=== PATIENT | male | born 1980 | race Caucasian/White ===

== ENCOUNTER 2017-12-27 10:21 | Emergency (ER) | payer BC, SELFPAY ==
--- OUTSIDE RECORDS SUMMARY | 2017-12-27 10:24 | XMS REPORT ---
:1980 [facility] Address [address] [place] [address] Dr. Tapia [address] [place] [id number] Care Team Providers Name Role Phone ANDREW SHEPARD Unavailable Unavailable DR AJIT CORDOVA Unavailable Unavailable Problems This patient has no known problems. Allergies, Adverse Reactions, Alerts This patient has no known allergies or adverse reactions. Medications This patient has no known medications. Encounters Start End Encounter Admission Attending Care Care Encounter Date/Time Date/Time Type Type Clinicians Facility Department ID 2017-05-19 2017-05-19 Emergency E DEVYN [facility] [id number] 20:24:00 21:45:00 ANDREW 2017-05-15 2017-05-15 Emergency E TASHA [facility] [id number] 18:21:00 20:14:00 AJIT Results Test Description Test Time Test Comments Text Results Atomic Results Result Comments DIRECT CHLAMYDIA EXAM 2017-05-18 11:44:00 Test Item Value Reference Range Comments CHLAMYDIA TRACHOMATIS (test NOT DETECTED NOT DETECTED jgvi=[id number]) NEISSERIA GONORRHOEAE (test DETECTED NOT DETECTED A positive CT or NG Nucleic qdxr=[id number]) Acid Amplification Test(NAAT) result should be interpreted in conjunctionwith other laboratory and clinical data available tothe clinician. If clinically indicated, furthertesting can be performed on the same sample usingan alternate molecular target. To order alternatetarget test use 71767 (C. trachomatis) [id number] (N. gonorrhoeae). Endnote (test oieh=[id number]) This test was performed using the APTIMA COMBO2 Assay([employer]The analytical performance characteristics of thisassay, when used to test SurePath specimens havebeen determined by [employer]TEST PERFORMED AT:[employer] [address] [address]NTXMDMIGUEL VALENCIA M.D. URINE [id number] 10:24:00 Test Item Value Reference Range Comments Culture Observations (test NO GROWTH (<1,000 CFU/ML) code=COB1) U/S [id number] 19:21:05LOCATION: [id number]: 37-year-old male with left-sided testicular pain.COMMENT:Sonographic imaging of this patient's scrotum and contents was obtainedutilizing grayscale, color-flow, and Doppler waveform imaging modalities. Thestudy was technically limited due to the patient 's inability to tolerateadequate pressure from the ultrasound probe.RIGHT SIDE: The testicle measures 41 x 32 x 20 mm and exhibits normal-appearing homogeneousechotexture. Low resistance arterial blood flow is seen on the Doppler study.The epididymis is unremarkable measuring 15 x 8 x 15 mm.There is a trace hydrocele. No varicocele is present.LEFT SIDE:The testicle measures 37 x 30 x 29 mm exhibits normal-appearing homogeneousechotexture. Low resistance arterial blood flow seen on the Doppler study.The epididymis is mildly heterogeneous measuring 11 x 9 x 8 mm. No increasedblood flow seen in the epididymis on color flow study.There is a small hydrocele also a varicocele is observed.The scrotal wall is unremarkable.IMPRESSION:Essentially unremarkable scrotal ultrasound examination. Bilateral sonolucenthydroceles are present as outlined above along with a left-sided varicocele.COMPREHENSIVE METABOLIC [id number] 19:17:00 Test Item Value Reference Range Comments GLUCOSE (test code=06D) 87 mg/dL 75-100 SODIUM (test code=01A) 138 mmol/L 136-145 POTASSIUM (test code=01B) 3.9 mmol/L 3.6-5.1 CHLORIDE (test code=04A) 103 mmol/L 98-107 CO2 (test code=02A) 29 mmol/L 22-32 ANION GAP (test code=ANG) 9.9 mmol/L BUN (test code=05D) 10 mg/dL 7-18 CREATININE (test code=03E) 1.0 mg/dL 0.7-1.3 BUN/CREA (test code=BCR) 10 12-20 CALCIUM (test code=09D) 8.6 mg/dL 8.3-9.5 BILI TOTAL (test code=11A) 0.3 mg/dL 0.2-1.0 PROTEIN (test code=07D) 7.5 g/dL 6.4-8.2 ALBUMIN (test code=08D) 3.4 g/dL 3.5-4.8 GLOBULIN (test code=GLB) 4.1 g/dL 1.5-3.8 ALB/GLOB (test code=AGRR) 0.8 1.0-2.6 ALK PHOS (test code=35A) 123 IU/L 42-121 AST (test code=30A) 9 IU/L <=42 ALT (test code=31A) 18 IU/L <=78 URINALYSIS WITH [id number] 19:07:00 Test Item Value Reference Range Comments COLOR (test code=COLU) DK YELLOW YELLOW CLARITY (test code=CLA) TURBID CLEAR GLUCOSE UR (test code=UA GLUCOSE) NEGATIVE NEGATIVE BILI UR (test code=BILE) NEGATIVE NEGATIVE KETONES UR (test code=LAURYN) NEGATIVE NEGATIVE SP GRAVITY (test code=SPGR) 1.026 1.005-1.030 PH UR (test code=PH) 6.0 4.5-8.0 PROTEIN UR (test code=PU) 1+ NEGATIVE UROBIL UR (test code=UROQ) 0.2 EU/dL 0.2-1.0 NITRITE UR (test code=NITRITE) NEGATIVE NEGATIVE BLOOD UR (test code=UA BLOOD) 2+ NEGATIVE LEUK ES UR (test code=LEUK) 2+ NEGATIVE WBC UR (test code=UWBC) 40 /HPF 0-3 RBC UR (test code=URBC) 20 /HPF 0-2 EPITH UR (test code=UEPC) FEW /LPF NONE BACTERIA UR (test code=UBACT) MODERATE /HPF NONE CAST UR (test code=CAST) /LPF NONE CRYSTAL UR (test code=CRYU) / LPF NONE MUCUS UR (test code=MUC) / HPF NONE AMORPH UR (test code=AJIT) / HPF NONE TRICH UR (test code=UTRICH) /HPF NONE YEAST UR (test code=UY) /HPF NONE SPERM UR (test code=USPERM) /HPF NONE CBC (INCLUDES AUTOMATED DIFFERENTIAL)2017-05-15 19:00:00 Test Item Value Reference Range Comments WBC (test code=WBC) 12.4 10\S\3/uL 4.5-11.0 RBC (test code=RBC) 5.35 10\S\6/uL 4.30-5.70 HGB (test code=HBG) 15.4 g/dL 14.0-18.0 HCT (test code=HCT) 46.5 % 35.0-46.0 MCV (test code=MCV) 86.9 fL 80.0-94.0 MCH (test code=MCH) 28.8 pg 27.0-31.0 MCHC (test code=MCHC) 33.1 g/dL 32.0-36.0 RDW (test code=RDW) 13.1 % 11.5-14.5 PLT (test code=PLT) 252 10\S\3/uL 130-400 MPV (test code=MPV) 8.7 fL 9.4-12.4 NEUTROP # (test code=NE#) 9.5 10\S\3/uL 2.0-8.0 LYMPH # (test code=LY#) 1.5 10\S\3/uL 1.2-4.0 MONOCYTE # (test code=MO#) 0.8 10\S\3/uL 0.0-1.1 EOSINOPH # (test code=EO#) 0.6 10\S\3/uL 0.0-0.7 BASOPHIL # (test code=BA#) 0.1 10\S\3/uL 0.0-0.3 IG # (test code=IG#) 0.06 10\S\3/uL 0.00-0.06 NRBC # (test code=NRBC#) 0.00 10\S\3/uL 0.00-0.01 NEUTROPH % (test code=NE%) 76.5 % 35.0-73.0 LYMPH % (test code=LY%) 11.8 % 20.0-55.0 MONO % (test code=MO%) 6.3 % 2.5-10.0 EOSINOPH % (test code=EO%) 4.4 % 0.0-5.0 BASOPHIL % (test code=BA%) 0.5 % 0.0-2.0 IG % (test code=IG%) 0.5 % 0.0-0.8 NRBC% (test code=NRBC%) 0.0 % 0.0-0.2 MANDIFF (test code=MDIFF) NO NO RBC MORPH (test code=RBCMOR) NORMAL
[2017-12-27] MEDS ORDERED: HYDROCODONE/APAP 10/325 TAB ONE (10:44)
--- NOTE | 2017-12-27 12:04 | RAD REPORT ---
EXAM DESCRIPTION: US - Scrotum Testicles - 12/27/2017 11:34 am CLINICAL HISTORY: scrotal pain COMPARISON: No comparisons FINDINGS: The right testicle 4.7 x 3.4 x 1.9 cm. No intratesticular masses or evidence of testicular torsion. The left testicle 3.9 x 3.3 x 3.0 cm. No intratesticular masses or evidence of testicular torsion. The left epididymis is enlarged with increased blood flow. A moderate left hydrocele. IMPRESSION: Left sided epididymitis is suspected. Moderate left hydrocele.
[2017-12-27] MEDS ORDERED: LIDOCAINE 1% MPF 2 ML AMPULE ONE (12:19)
[2017-12-27] MEDS ORDERED: CEFTRIAXONE 1000 MG/VIAL ONE (12:20)
--- NOTE | 2017-12-27 12:26 | ER ---
Nurse's Notes [facility] Name: Ritchie David Age: 37 yrs Sex: Male : 1980 Arrival Date: 12/27/2017 Time: 10:22 Bed 13 Private MD: Diagnosis: Epididymitis Presentation: 12/27 10:31 Presenting complaint: Patient states: Pt c/o L testicle swelling x 1 week, also reports ph nausea, denies V/D, fever, or urinary symptoms. Transition of care: patient was not received from another setting of care. Onset of symptoms was December 27, 2017. Risk Assessment: Do you want to hurt yourself or someone else? Patient reports no desire to harm self or others. Initial Sepsis Screen: Does the patient meet any 2 criteria? No. Patient's initial sepsis screen is negative. Care prior to arrival: None. 10:31 Method Of Arrival: Ambulatory ph 10:31 Acuity: KAUSHIK 3 ph 10:46 Initial Sepsis Screen: Does the patient have a suspected source of infection? No. mb3 Patient's initial sepsis screen is negative. Historical: - Allergies: 10:33 No Known Allergies; ph - Home Meds: 10:33 None [Active]; ph - PMHx: 10:33 None; ph - PSHx: 10:33 Knee surgery; hand surgery; ph - Immunization history:: Adult Immunizations not up to date. - Social history:: Smoking status: Patient uses tobacco products, smokes one-half pack cigarettes per day. - Ebola Screening: : No symptoms or risks identified at this time. Screenin:46 Abuse screen: Denies threats or abuse. Nutritional screening: No deficits noted. mb3 Tuberculosis screening: No symptoms or risk factors identified. Fall Risk None identified. Assessment: 10:43 General: Appears distressed, uncomfortable, Behavior is calm, cooperative, appropriate mb3 for age. Pain: Complains of pain in groin Pain currently is 10 out of 10 on a pain scale. Neuro: No deficits noted. Level of Consciousness is awake, alert, obeys commands. Cardiovascular: No deficits noted. Denies chest pain, Heart tones present Capillary refill < 3 seconds Patient's skin is warm and dry. Respiratory: No deficits noted. Airway is patent Respiratory effort is even, unlabored, Respiratory pattern is regular, symmetrical, Breath sounds are clear bilaterally. GI: No deficits noted. No signs and/or symptoms were reported involving the gastrointestinal system. : Swelling noted on scrotum Reports pain scrotum, testicle, since 5 days ago. EENT: No deficits noted. No signs and/or symptoms were reported regarding the EENT system. Musculoskeletal: No deficits noted. No signs and/or symptoms reported regarding the musculoskeletal system. Vital Signs: 10:33 BP 129 / 74; Pulse 79; Resp 22; Temp 98.2(TE); Pulse Ox 100% on R/A; Weight 68.04 kg; ph Height 5 ft. 9 in. (175.26 cm); Pain 10/10; 12:35 BP 116 / 75; Pulse 92; Resp 16; Pulse Ox 97% on R/A; mb3 10:33 Body Mass Index 22.15 (68.04 kg, 175.26 cm) ph ED Course: 10:22 Patient arrived in ED. as 10:24 Easton Richards PA is PHCP. [facility] 10:24 Bruce Pulido MD is Attending Physician. jmm 10:25 Raghav Jacobo, VIET is Primary Nurse. mb3 10:33 Triage completed. ph 10:34 Arm band placed on. ph 10:34 Patient has correct armband on for positive identification. Placed in gown. Bed in low ph position. Call light in reach. Side rails up X 1. Pulse ox on. NIBP on. Warm blanket given. 11:35 US Scrotum Testicles In Process Unspecified. EDMS 12:26 Jared Briceno MD is Referral Physician. jmm 12:34 No provider procedures requiring assistance completed. Patient did not have IV access mb3 during this emergency room visit. Administered Medications: 10:42 Drug: [place] 10 mg-325 mg 1 tabs Route: PO; mb3 12:11 Follow up: Response: No adverse reaction mb3 12:21 Drug: Rocephin (cefTRIAXone) 1 grams Route: IM; Site: left gluteus; mb3 12:33 Follow up: Response: No adverse reaction mb3 Outcome: 12:26 Discharge ordered by . jmm 12:34 Discharged to home ambulatory, with friend. mb3 12:34 Condition: stable 12:34 Discharge instructions given to patient, Instructed on discharge instructions, follow up and referral plans. no driving heavy equipment, medication usage, Demonstrated understanding of instructions, follow-up care, medications, Prescriptions given X 2. 12:35 Patient left the ED. mb3 Signatures: Dispatcher [employer] EDMS Easton Richards PA PA jmm Martinez, Amelia as Hall, Patricia, RN RN Raghav Thrasher RN RN mb3
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
[2017-12-27 12:41] VITALS: BP 129/74; TEMP 98.2; O2SAT 100
[2017-12-27 12:45] LABS: Urine Blood TRACE (NEG); Urine Glucose NEGATIVE (NEG); Urine Protein NEGATIVE (NEG); Urine Specific Gravity 1.025 (1.005-1.030)
== END 2017-12-27 12:35 | disposition home or self-care (01) ==
LOC: ER 10:21
DX: N45.1 Epididymitis (principal); F17.210 Nicotine dependence, cigarettes, uncomplicated
CPT/HCPCS: 76870; 81003; 87086; 87088; 96372; 99284; J2001

== ENCOUNTER 2019-01-25 10:43 | Emergency (ER) | payer SELFPAY ==
--- OUTSIDE RECORDS SUMMARY | 2019-01-25 10:47 | XMS REPORT ---
:1980 [facility] Address [address] [place] [address] Dr. Tapia [address] [place] [address] Care Team Providers Name Role Phone ANDREW [...] Department ID 2017-05-19 2017-05-19 Emergency E DEVYN [facility] [id number] 20:24:00 21:45:00 ANDREW 2017-05-15 2017-05-15 Emergency E TASHA [facility] [id number] 18:21:00 20:14:00 AJIT Results Test Description Test Time Test Comments Text Results Atomic Results Result Comments DIRECT CHLAMYDIA EXAM 2017-05-18 11:44:00 Test Item Value Reference Range Comments CHLAMYDIA TRACHOMATIS (test NOT DETECTED NOT DETECTED votz=[id number]) NEISSERIA GONORRHOEAE (test DETECTED NOT DETECTED A positive CT or NG Nucleic immi=[id number]) Acid Amplification Test(NAAT) result should be interpreted in conjunctionwith other laboratory and clinical data available tothe clinician. If clinically indicated, furthertesting can be performed on the same sample usingan alternate molecular target. To order alternatetarget test use 22733 (C. trachomatis) [id number] (N. gonorrhoeae). Endnote (test ylod=[id number]) This test was performed using the APTIMA COMBO2 Assay([employer]The analytical performance characteristics of thisassay, when used to test SurePath specimens havebeen determined by [employer].TEST PERFORMED AT:[employer] [address] [id number] VALENCIA M.D. URINE [id number] 10:24:00 Test Item Value Reference Range Comments Culture Observations (test NO GROWTH (<1,000 CFU/ML) code=COB1) U/S [id number] 19:21:05LOCATION: [id number]: 37-year-old male with left-sided testicular pain.COMMENT:Sonographic imaging [...] above along with a left-sided varicocele.COMPREHENSIVE METABOLIC [id number] 19:17:00 Test Item Value Reference Range Comments [...] (test code=31A) 18 IU/L <=78 URINALYSIS WITH [id number] 19:07:00 Test Item Value Reference Range Comments [...]
[2019-01-25 11:57] LABS: Urine Blood NEGATIVE (NEG); Urine Glucose NEGATIVE (NEG); Urine Protein NEGATIVE (NEG); Urine Specific Gravity 1.015 (1.005-1.030); Urine pH 7.5 (5.0-7.0)
[2019-01-25 12:07] LABS: Absolute Lymphocytes (CBC) 1.1 K/uL (0.7-4.9); Basophils % 0.6 % (0-1.3); Hematocrit 46.8 % (39.6-49.0); Lymphocytes % 15.9 % (15.3-44.8); MPV 8.2 fL (7.6-11.3); RBC Red Blood Cell Count 5.25 M/uL (4.33-5.43)
--- NOTE | 2019-01-25 12:17 | RAD REPORT ---
EXAM DESCRIPTION: CT - Stone Protocol - 01/25/2019 12:01 pm CLINICAL HISTORY: Flank pain. HEMATURIA COMPARISON: No comparisons TECHNIQUE: Axial images were obtained without oral or IV contrast. Lack of contrast limits solid org an and vascular assessment. The uywvy-yi-oqyr spans the entirety of the system partially obscuring uppermost abdomen and lung bases. Coronal reformatted images were obtained and reviewed. All CT scans are performed using dose optimization technique as appropriate and may include automated exposure control or mA/KV adjustment according to patient size. FINDINGS: Linear subsegmental atelectasis is present in both lung bases, greater on the right. Imaged portions of the liver and spleen show no suspicious findings on non-contrast imaging. The panc reas and adrenal glands are normal. No pathologic lymphadenopathy in the abdomen or pelvis. No urinary tract stones or obstructive uropathy. No bowel obstruction, free air, free fluid or abscess. Normal appendix noted. No significant bony abnormality. IMPRESSION: No urinary tract stones or obstructive uropathy.
[2019-01-25 12:29] LABS: ALT/SGPT 54 U/L (12-78); AST/SGOT 24 U/L (15-37); Albumin 3.8 g/dL (3.4-5.0); Alkaline Phosphatase 83 U/L (45-117); BUN Blood Urea Nitrogen 11 mg/dL (7-18); Bicarbonate 25 mmol/L (21-32); Bilirubin Direct < 0.1 mg/dL (0-0.2); Bilirubin Total 0.3 mg/dL (0.2-1.0); CKMB Creatine Kinase MB < 1.0 ng/mL (0.3-3.6); Creatine Phosphokinase 148 U/L (39-308); Glucose Level 82 mg/dL (74-106); Lipase 65 U/L (73-393); Protein, Total 7.3 g/dL (6.4-8.2); Sodium Level 142 mmol/L (136-145)
[2019-01-25 12:38] LABS: Urine Bacteria <20 /HPF (NONE SEEN); Urine Culture Reflex Order NOT NEEDED; Urine RBC <5 /HPF (NONE SEEN)
--- NOTE | 2019-01-25 12:56 | RAD REPORT ---
EXAM DESCRIPTION: US - Scrotum Testicles - 01/25/2019 12:48 pm CLINICAL HISTORY: testicular pain COMPARISON: Scrotum Testicles dated 12/27/2017 FINDINGS: The right testicle 5.0 x 3.1 x 2.2 cm. No intratesticular masses or evidence of testicular torsion. The left testicle 4.7 x 3.2 x 2.2 cm. No intratesticular masses or evidence of testicular torsion. Both epididymides are normal in size and appearance. No pathologic fluid collections. IMPRESSION: Unremarkable study.
--- NOTE | 2019-01-25 13:19 | ER ---
Nurse's Notes [facility] Name: Ritchie David Age: 39 yrs Sex: Male : 1980 Arrival Date: 01/25/2019 Time: 10:47 Bed 18 Private MD: None, None Diagnosis: Low back pain;Hematuria Presentation: 01/25 11:24 Presenting complaint: Patient states: Intermittent penile bleeding and mid back ss achiness that began 2 months ago. Patient reports he was in [facility] for the past 5 months and just got out today and was told to come get checked out. Transition of care: patient was not received from another setting of care. Onset of symptoms is unknown. Risk Assessment: Do you want to hurt yourself or someone else? Patient reports no desire to harm self or others. Initial Sepsis Screen: Does the patient meet any 2 criteria? HR > 90 bpm. Does the patient have a suspected source of infection? No. Patient's initial sepsis screen is negative. Care prior to arrival: None. 11:24 Method Of Arrival: Ambulatory ss 11:24 Acuity: KAUSHIK 3 ss Historical: - Allergies: 11:27 No Known Allergies; ss - Home Meds: 11:27 Depakote ER Oral [Active]; Remeron Oral [Active]; Risperdal Oral [Active]; ss - PMHx: 11:27 Bipolar disorder; Depression; ss - PSHx: 11:27 Knee surgery; hand surgery; ss - Immunization history:: Adult Immunizations up to date. - Social history:: Smoking status: Patient uses tobacco products, denies chronic smoking, but will smoke occasionally. - Ebola Screening: : Patient denies exposure to infectious person Patient denies travel to an Ebola-affected area in the 21 days before illness onset. Screenin:00 Abuse screen: Denies threats or abuse. Nutritional screening: No deficits noted. em Tuberculosis screening: No symptoms or risk factors identified. Fall Risk None identified. Assessment: 12:00 General: Appears in no apparent distress. comfortable, Behavior is calm, cooperative, em Denies fever. Pain: Complains of pain in suprapubic area Pain currently is 5 out of 10 on a pain scale. at worst was 10 out of 10 on a pain scale. Neuro: Level of Consciousness is awake, alert, obeys commands, Oriented to person, place, time, situation. Cardiovascular: Capillary refill < 3 seconds Patient's skin is warm and dry. Respiratory: Airway is patent Respiratory effort is even, unlabored, Respiratory pattern is regular, symmetrical. GI: Abdomen is flat, Bowel sounds present X 4 quads. Abd is soft X 4 quads Abdomen is tender to palpation in suprapubic area Patient currently denies nausea, vomiting. : Reports hematuria off and on for 2 months. Derm: Skin is intact, is healthy with good turgor, Skin is pink, warm \T\ dry. Musculoskeletal: Capillary refill < 3 seconds, Range of motion: intact in all extremities. 12:15 General: The previous assessment is accurate, call light remains within reach. . ss 13:08 Reassessment: Patient appears in no apparent distress at this time. Patient and/or em family updated on plan of care and expected duration. Pain level reassessed. Patient is alert, oriented x 3, equal unlabored respirations, skin warm/dry/pink. 14:00 Reassessment: Patient appears in no apparent distress at this time. Patient and/or em family updated on plan of care and expected duration. Pain level reassessed. Patient is alert, oriented x 3, equal unlabored respirations, skin warm/dry/pink. Patient states symptoms have improved. Vital Signs: 11:27 BP 140 / 71; Pulse 92; Resp 16; Temp 98.9(TE); Pulse Ox 99% on R/A; Weight 83.91 kg; ss Height 5 ft. 9 in. (175.26 cm); Pain 4/10; 12:08 BP 142 / 92; Pulse 88; Resp 18; Pulse Ox 99% on R/A; Pain 4/10; em 13:04 BP 128 / 85; Pulse 91; Resp 16; Pulse Ox 97% on R/A; em 11:27 Body Mass Index 27.32 (83.91 kg, 175.26 cm) ED Course: 10:47 Patient arrived in ED. dp 10:47 None, None is Private Physician. dp 11:26 Triage completed. ss 11:27 Arm band placed on right wrist. ss 11:35 Bernard Patrick PA is PHCP. cp 11:36 Ubaldo Fernandes MD is Attending Physician. cp 11:39 Win Azar LVN is Primary Nurse. em 11:57 Initial lab(s) drawn, by me, sent to lab. Urine collected: clean catch specimen, clear, ms Amount Voided: 80mL. Inserted saline lock: 20 gauge in left antecubital area, using aseptic technique. Blood collected. Missed attempt(s): 20 gauge in right antecubital area. Bleeding controlled, band aid applied, catheter tip intact. 12:00 Patient has correct armband on for positive identification. Placed in gown. Bed in low em position. Call light in reach. Side rails up X2. Pulse ox on. NIBP on. 12:01 CT Stone Protocol In Process Unspecified. EDMS 12:01 CT completed. Patient tolerated procedure well. Patient moved back from CT. mw3 12:47 Ultrasound completed. Patient tolerated well. sg3 12:47 US Scrotum Testicles In Process Unspecified. EDMS 13:15 Jared Briceno MD is Referral Physician. cp 14:11 No provider procedures requiring assistance completed. IV discontinued, intact, em bleeding controlled, No redness/swelling at site. Pressure dressing applied. Administered Medications: 14:00 Drug: Rocephin 1 grams Route: IV; Rate: calculated rate; Site: right antecubital; ss 14:12 Follow up: Response: No adverse reaction; IV Status: Completed infusion; IV Intake: 10mlem 14:10 Drug: Zithromax 1 grams Route: PO; em 14:12 Follow up: Response: No adverse reaction em Intake: 14:12 IV: 10ml; Total: 10ml. em Outcome: 13:18 Discharge ordered by MD. cp 14:11 Discharged to home ambulatory, with family. em 14:11 Condition: good 14:11 Discharge instructions given to patient, family, Instructed on discharge instructions, follow up and referral plans. medication usage, Demonstrated understanding of instructions, follow-up care, medications, Prescriptions given X 1. 14:13 Patient left the ED. em Signatures: Dispatcher [employer] EDMS Win Azar, SALES COMMISSIONS ANALYST SALES COMMISSIONS ANALYST Jessika Diaz ms, Shelby, RN RN ss Bernard Patrick, JANAY PA Key Aldridge sg3 Catalina Silverio mw3 Joseph Vences
--- NOTE | 2019-01-25 13:19 | EDPHYS ---
Physician Documentation [facility] Name: Ritchie David Age: 39 yrs Sex: Male : 1980 Arrival Date: 01/25/2019 Time: 10:47 Bed 18 Private MD: None, None ED Physician Ubaldo Fernandes HPI: 01/25 11:50 This 39 yrs old Male presents to ER via Ambulatory with complaints of Penile cp Bleeding. 11:50 The patient presents with urinary symptoms, hematuria, bleeding from penis. cp 11:50 Onset: The symptoms/episode began/occurred 2 month(s) ago. cp 11:50 Associated signs and symptoms: Pertinent positives: hematuria, Pertinent negatives: cp abdominal pain, diarrhea, dysuria, fever, vomiting. Severity of symptoms: in the emergency department the symptoms are unchanged, noticed blood in shorts prior to arrival. Historical: - Allergies: 11:27 No Known Allergies; ss - Home Meds: 11:27 Depakote ER Oral [Active]; Remeron Oral [Active]; Risperdal Oral [Active]; ss - PMHx: 11:27 Bipolar disorder; Depression; ss - PSHx: 11:27 Knee surgery; hand surgery; ss - Immunization history:: Adult Immunizations up to date. - Social history:: Smoking status: Patient uses tobacco products, denies chronic smoking, but will smoke occasionally. - Ebola Screening: : Patient denies exposure to infectious person Patient denies travel to an Ebola-affected area in the 21 days before illness onset. ROS: 12:00 Constitutional: Negative for body aches, chills, fever, poor PO intake. cp 12:00 Eyes: Negative for injury, pain, redness, and discharge. cp 12:00 ENT: Negative for drainage from ear(s), ear pain, sore throat, difficulty swallowing, difficulty handling secretions. 12:00 Cardiovascular: Negative for chest pain, palpitations. 12:00 Respiratory: Negative for cough, shortness of breath, wheezing. 12:00 Abdomen/GI: Negative for abdominal pain, nausea, vomiting, and diarrhea, constipation, black/tarry stool, rectal bleeding. 12:00 : Positive for hematuria, bleeding from penis, Negative for burning with urination, testicular pain 12:00 Skin: Negative for cellulitis, rash. 12:00 Neuro: Negative for altered mental status, headache, weakness. 12:00 All other systems are negative. Exam: 12:05 Constitutional: The patient appears in no acute distress, alert, awake, non-toxic, well cp developed, well nourished. 12:05 Head/Face: Normocephalic, atraumatic. cp 12:05 Eyes: Periorbital structures: appear normal, Conjunctiva: normal, no exudate, no injection, Sclera: no appreciated abnormality, Lids and lashes: appear normal, bilaterally. 12:05 ENT: External ear(s): are unremarkable, Nose: is normal, Mouth: is normal, Posterior pharynx: is normal, airway is patent, no erythema, no exudate. 12:05 Chest/axilla: Inspection: normal, Palpation: is normal, no crepitus, no tenderness. 12:05 Cardiovascular: Rate: normal, Rhythm: regular. 12:05 Respiratory: the patient does not display signs of respiratory distress, Respirations: normal, no use of accessory muscles, no retractions, no splinting, no tachypnea, labored breathing, is not present, Breath sounds: are clear throughout, no decreased breath sounds, no stridor, no wheezing. 12:05 Abdomen/GI: Inspection: abdomen appears normal, Bowel sounds: active, all quadrants, Palpation: abdomen is soft and non-tender, in all quadrants. 12:05 Back: pain, is absent, ROM is normal, CVA tenderness, is absent. 12:05 : Male external genitalia: Circumcision noted. swelling: is not appreciated, tenderness, of the scrotum is noted, that is mild, Sexual behavior: the patient is sexually active, and reports a single partner. 12:05 Skin: no rash present. Vital Signs: 11:27 BP 140 / 71; Pulse 92; Resp 16; Temp 98.9(TE); Pulse Ox 99% on R/A; Weight 83.91 kg; ss Height 5 ft. 9 in. (175.26 cm); Pain 4/10; 12:08 BP 142 / 92; Pulse 88; Resp 18; Pulse Ox 99% on R/A; Pain 4/10; em 13:04 BP 128 / 85; Pulse 91; Resp 16; Pulse Ox 97% on R/A; em 11:27 Body Mass Index 27.32 (83.91 kg, 175.26 cm) ss MDM: 11:44 Patient medically screened. 13:17 Data reviewed: vital signs, nurses notes, lab test result(s), radiologic studies, CT cp scan, ultrasound, and as a result, I will discharge patient. 13:17 Counseling: I had a detailed discussion with the patient and/or guardian regarding: the cp historical points, exam findings, and any diagnostic results supporting the discharge/admit diagnosis, lab results, radiology results, the need for outpatient follow up, a urologist, to return to the emergency department if symptoms worsen or persist or if there are any questions or concerns that arise at home. 01/25 11:45 Order name: Basic Metabolic Panel; Complete Time: 13:07 01/25 13:08 Interpretation: Normal except: CL 109; GFR 68. 01/25 11:45 Order name: CBC with Diff; Complete Time: 13:07 01/25 13:08 Interpretation: Normal except: MCV 89.0; EOSINOPHIL % 8.6. 01/25 11:45 Order name: Creatinine for Radiology; Complete Time: 13:07 01/25 11:45 Order name: Hepatic Function; Complete Time: 13:07 01/25 11:45 Order name: Lipase; Complete Time: 13:07 01/25 13:08 Interpretation: LIP 65; Reviewed. 01/25 11:45 Order name: Ckmb; Complete Time: 13:07 01/25 11:45 Order name: CK; Complete Time: 13:07 01/25 11:45 Order name: Urine Microscopic Only; Complete Time: 13:07 01/25 13:08 Interpretation: Reviewed. 01/25 11:45 Order name: CT Stone Protocol; Complete Time: 13:07 01/25 13:09 Interpretation: Report reviewed. 01/25 11:45 Order name: US Scrotum Testicles; Complete Time: 13:07 01/25 11:45 Order name: Urine Culture 01/25 11:48 Order name: Urine Dipstick--Ancillary (enter results); Complete Time: 13:09 01/25 13:09 Interpretation: Normal except: UPH 7.5. 01/25 11:45 Order name: IV Saline Lock; Complete Time: 11:57 01/25 11:45 Order name: Labs collected and sent; Complete Time: 11:57 cp 01/25 11:45 Order name: Urine Dipstick-Ancillary (obtain specimen); Complete Time: 11:57 cp Administered Medications: 14:00 Drug: Rocephin 1 grams Route: IV; Rate: calculated rate; Site: right antecubital; ss 14:12 Follow up: Response: No adverse reaction; IV Status: Completed infusion; IV Intake: 10mlem 14:10 Drug: Zithromax 1 grams Route: PO; em 14:12 Follow up: Response: No adverse reaction em Disposition: 01/25/19 13:18 Discharged to Home. Impression: Low back pain, Hematuria. - Condition is Stable. - Discharge Instructions: Back Pain, Adult, Hematuria, Adult, Back Exercises. - Prescriptions for Ibuprofen 800 mg Oral Tablet - take 1 tablet by ORAL route every 8 hours As needed take with food; 30 tablet. - Medication Reconciliation Form, Thank You Letter, Antibiotic Education, Prescription Opioid Use form. - Follow up: Jared Briceno MD; When: 2 - 3 days; Reason: Recheck today's complaints. - Problem is new. - Symptoms have improved. Signatures: Dispatcher [employer] EDMS Win Azar, DIP[employer]OCK [employer] WATCH HANDS DIPPER CLOCK AND WATCH HANDS em Edith Nieves RN RN ss Bernard Patrick PA PA cp Corrections: (The following items were deleted from the chart) 14:13 13:18 01/25/2019 13:18 Discharged to Home. Impression: Low back pain; Hematuria. em Condition is Stable. Forms are Medication Reconciliation Form, Thank You Letter, Antibiotic Education, Prescription Opioid Use. Follow up: Jared Briceno; When: 2 - 3 days; Reason: Recheck today's complaints. Problem is new. Symptoms have improved. cp
[2019-01-25] MEDS ORDERED: CEFTRIAXONE/SWI 1gm 1 GM/10 ML SYR ONE (14:00)
[2019-01-25] MEDS ORDERED: AZITHROMYCIN 250 MG TAB ONE (14:00)
[2019-01-25 14:21] VITALS: TEMP 98.9; O2SAT 99
[2019-01-25 14:23] VITALS: BP 142/92
== END 2019-01-25 14:13 | disposition home or self-care (01) ==
LOC: ER 10:43
DX: M54.5 Low back pain (principal); F32.9 Major depressive disorder, single episode, unspecified; F31.9 Bipolar disorder, unspecified; Z72.0 Tobacco use
CPT/HCPCS: 36415; 74176; 76377; 76870; 80048; 80076; 81003; 81015; 82550; 82553; 83690; 85025; 87086; 87088; 96374; 99284; J0696

== ENCOUNTER 2022-02-14 23:20 | Emergency (ER) | payer SELFPAY ==
--- OUTSIDE RECORDS SUMMARY | 2022-02-14 23:22 | XMS REPORT | Continuity of Care Document ---
:1980 Author Organization [facility] t Address [address] [place] [address] [address] [place] [address] Care Team Providers Name Role Phone ANDREW SHEPARD Attending Clinician Unavailable DR AJIT CORDOVA Attending Clinician Unavailable ANDREW SHEPARD Admitting Clinician Unavailable DR AJIT CORDOVA Admitting Clinician Unavailable Problems This patient has no known problems. Allergies, Adverse Reactions, Alerts This patient has no known allergies or adverse reactions. Medications This patient has no known medications. Procedures This patient has no known procedures. Encounters Start End Encounter Admission Attending Care Care Encounter Source Date/Time Date/Time Type Type Clinicians Facility Department ID 2017-05-19 2017-05-19 Emergency E DEVYN [facility] [id number] [place] 20:24:00 21:45:00 [facility] 2017-05-15 2017-05-15 Emergency E TASHA [facility] [id number] [place] 18:21[place] 20:14:00 [facility] Results Test Description Test Time Test Comments Results Result Comments Source DIRECT CHLAMYDIA EXAM 2017-05-18 11:44:00 Test Item Value Reference Range Interpretation Comme nts CHLAMYDIA TRACHOMATIS (test NOT DETECTED NOT DETECTED code = 13946345) NEISSERIA GONORRHOEAE (test DETECTED NOT DETECTED A A positive CT or NG Nucleic code = 88251148) Acid Amplif ication Test(NAAT) result should b e interpreted in conjunctionw ith other laboratory and clinical data available tothe clinician. If clinically tanya cated, furthertesting can be performed on e same sample usingan alterna te molecular target. To orde r alternatetarget test use 36506 (C. trachomatis ) [id number] (N. gonorrhoeae). Endnote (test code = This te st was performed using [id number]) the APTIMA COMB O2 Assay([employer]The analytical perf ormance characteristics of thisassay, when used to te st [employer] specimens haveb een determined by [employer].TEST PERFORMED AT:[facility] [address] [id number] VALENCIA M.D. URINE [id number] 10:24:00 Test Item Value Reference Range Interpretation Comments Culture Observations (test NO GROWTH (<1,000 code = COB1) CFU/ML) U/S [id number] 19:21:05LOCATION: [id number]: 37-year-old male with left-sided testicular pain.COMMENT:Sonographic imaging of this patient's scrotum and contents was obtainedutilizing grayscale, color-flow, and Doppler waveform imaging modalities. Thestudy was technically limited due to the patient's inability to tolerateadequate pressure from the ultrasound probe.RIGHT SIDE:The testicle measures 41 x 32 x 20 [...] on the Doppler study.The epididymis is mildly heter ogeneous measuring 11 x 9 x 8 mm. No increasedblood flow seen in the epididymis on color flow study.There is a small hydrocele also a varicocele is observed.The scrotal wall is unremarkable.IMPRESSION:Essentially unremarkable scrotal ultrasound examination. Bilateral sonolucenthydroceles are present as outlined above along with a left-sided varicocele.COMPREHENSIVE METABOLIC [id number] 19:17:00 Test Item Value Reference Range Interpretation Comments GLUCOSE (test code = 06D) 87 mg/dL 75-100 SODIUM (test code = 01A) 138 mmol/L 136-145 POTASSIUM (test code = 01B) 3.9 mmol/L 3.6-5.1 CHLORIDE (test code = 04A) 103 mmol/L 98-107 CO2 (test code = 02A) 29 mmol/L 22-32 ANION GAP (test code = ANG) 9.9 mmol/L BUN (test code = 05D) 10 mg/dL 7-18 CREATININE (test code = 03E) 1.0 mg/dL 0.7-1.3 BUN/CREA (test code = BCR) 10 12-20 L CALCIUM (test code = 09D) 8.6 mg/dL 8.3-9.5 BILI TOTAL (test code = 11A) 0.3 mg/dL 0.2-1.0 PROTEIN (test code = 07D) 7.5 g/dL 6.4-8.2 ALBUMIN (test code = 08D) 3.4 g/dL 3.5-4.8 L GLOBULIN (test code = GLB) 4.1 g/dL 1.5-3.8 H ALB/GLOB (test code = AGRR) 0.8 1.0-2.6 L ALK PHOS (test code = 35A) 123 IU/L 42-121 H AST (test code = 30A) 9 IU/L <=42 ALT (test code = 31A) 18 IU/L <=78 URINALYSIS WITH [id number] 19:07:00 Test Item Value Reference Range Interpretation Comments COLOR (test code = COLU) DK YELLOW YELLOW A CLARITY (test code = CLA) TURBID CLEAR A GLUCOSE UR (test code = UA NEGATIVE NEGATIVE GLUCOSE) BILI UR (test code = BILE) NEGATIVE NEGATIVE KETONES UR (test code = LAURYN) NEGATIVE NEGATIVE SP GRAVITY (test code = SPGR) 1.026 1.005-1.030 PH UR (test code = PH) 6.0 4.5-8.0 PROTEIN UR (test code = PU) 1+ NEGATIVE A UROBIL UR (test code = UROQ) 0.2 EU/dL 0.2-1.0 NITRITE UR (test code = NEGATIVE NEGATIVE NITRITE) BLOOD UR (test code = UA BLOOD) 2+ NEGATIVE A LEUK ES UR (test code = LEUK) 2+ NEGATIVE A WBC UR (test code = UWBC) 40 /HPF 0-3 H RBC UR (test code = URBC) 20 /HPF 0-2 H EPITH UR (test code = UEPC) FEW /LPF NONE A BACTERIA UR (test code = UBACT) MODERATE /HPF NONE A CAST UR (test code = CAST) /LPF NONE CRYSTAL UR (test code = CRYU) / LPF NONE MUCUS UR (test code = MUC) / HPF NONE AMORPH UR (test code = AJIT) / HPF NONE TRICH UR (test code = UTRICH) /HPF NONE YEAST UR (test code = UY) /HPF NONE SPERM UR (test code = USPERM) /HPF NONE CBC (INCLUDES AUTOMATED DIFFERENTIAL)2017-05-15 19:00:00 Test Item Value Reference Range Interpretation Comments WBC (test code = WBC) 12.4 10\S\3/uL 4.5-11.0 H RBC (test code = RBC) 5.35 10\S\6/uL 4.30-5.70 HGB (test code = HBG) 15.4 g/dL 14.0-18.0 HCT (test code = HCT) 46.5 % 35.0-46.0 H MCV (test code = MCV) 86.9 fL 80.0-94.0 MCH (test code = MCH) 28.8 pg 27.0-31.0 MCHC (test code = MCHC) 33.1 g/dL 32.0-36.0 RDW (test code = RDW) 13.1 % 11.5-14.5 PLT (test code = PLT) 252 10\S\3/uL 130-400 MPV (test code = MPV) 8.7 fL 9.4-12.4 L NEUTROP # (test code = NE#) 9.5 10\S\3/uL 2.0-8.0 H LYMPH # (test code = LY#) 1.5 10\S\3/uL 1.2-4.0 MONOCYTE # (test code = MO#) 0.8 10\S\3/uL 0.0-1.1 EOSINOPH # (test code = EO#) 0.6 10\S\3/uL 0.0-0.7 BASOPHIL # (test code = BA#) 0.1 10\S\3/uL 0.0-0.3 IG # (test code = IG#) 0.06 10\S\3/uL 0.00-0.06 NRBC # (test code = NRBC#) 0.00 10\S\3/uL 0.00-0.01 NEUTROPH % (test code = NE%) 76.5 % 35.0-73.0 H LYMPH % (test code = LY%) 11.8 % 20.0-55.0 L MONO % (test code = MO%) 6.3 % 2.5-10.0 EOSINOPH % (test code = EO%) 4.4 % 0.0-5.0 BASOPHIL % (test code = BA%) 0.5 % 0.0-2.0 IG % (test code = IG%) 0.5 % 0.0-0.8 NRBC% (test code = NRBC%) 0.0 % 0.0-0.2 MANDIFF (test code = MDIFF) NO NO RBC MORPH (test code = RBCMOR) NORMAL
[2022-02-15] MEDS ORDERED: LIDOCAINE 1% W/EPI 1:100,000 MDV 50 ML VIAL ONE (00:23)
--- NOTE | 2022-02-15 01:09 | ER ---
Nurse's Notes [facility] Name: Ritchie David Age: 42 yrs Sex: Male : 1980 Arrival Date: 02/14/2022 Time: 23:23 Bed 12 Private MD: Diagnosis: Laceration with foreign body of left forearm, initial encounter Presentation: 02/14 23:38 Chief complaint: Patient states: punch a glass window - laceration to left forearm with ld1 "glass still stuck in it." Pt c/o arm pain. Coronavirus screen: At this time, the client does not indicate any symptoms associated with coronavirus-19. Ebola Screen: No symptoms or risks identified at this time. Initial Sepsis Screen: Does the patient meet any 2 criteria? No. Patient's initial sepsis screen is negative. Does the patient have a suspected source of infection? No. Patient's initial sepsis screen is negative. Risk Assessment: Do you want to hurt yourself or someone else? Patient reports no desire to harm self or others. Onset of symptoms was February 14, 2022. 23:38 Method Of Arrival: Ambulatory ld1 23:38 Acuity: KAUSHIK 3 ld1 Triage Assessment: 23:39 General: Appears in no apparent distress. uncomfortable, Behavior is cooperative, ld1 appropriate for age, anxious. Pain: Complains of pain in dorsal aspect of left forearm and palmar aspect of left forearm Pain does not radiate. Pain currently is 9 out of 10 on a pain scale. Quality of pain is described as throbbing, Pain began suddenly. EENT: No signs and/or symptoms were reported regarding the EENT system. Neuro: Level of Consciousness is awake, alert, obeys commands, Oriented to person, place, time, situation. Cardiovascular: Capillary refill < 3 seconds Patient's skin is warm and dry. Respiratory: Airway is patent Respiratory effort is even, unlabored. GI: Abdomen is flat, non-distended. : No signs and/or symptoms were reported regarding the genitourinary system. Derm: No signs and/or symptoms reported regarding the dermatologic system. Musculoskeletal: No signs and/or symptoms reported regarding the musculoskeletal system. Injury Description: Laceration sustained to left arm. Historical: - Allergies: 23:39 No Known Allergies; ld1 - PMHx: 23:39 Bipolar disorder; Depression; ld1 - PSHx: 23:39 None; ld1 - Immunization history:: Adult Immunizations up to date, Client reports having NOT received the Covid vaccine. - Social history:: Smoking status: Patient reports the use of cigarette tobacco products, smokes one-half pack cigarettes per day, Patient/guardian denies using alcohol. - Family history:: not pertinent. Screenin/07 01:35 Abuse screen: Denies threats or abuse. Nutritional screening: No deficits noted. as6 Tuberculosis screening: No symptoms or risk factors identified. Fall Risk None identified. Vital Signs: 02/14 23:38 BP 120 / 96; Pulse 105; Resp 18; Temp 98.0(O); Pulse Ox 98% on R/A; Weight 65.77 kg; ld1 Height 5 ft. 9 in. (175.26 cm); Pain 7/10; 23:38 Body Mass Index 21.41 (65.77 kg, 175.26 cm) ld1 ED Course: 23:23 Patient arrived in ED. ja2 23:39 Triage completed. ld1 23:39 Arm band placed on. ld1 23:54 Bernard Campos MD is Attending Physician. [facility] 02/15 01:07 Chuy Pena MD is Referral Physician. [facility] 01:32 Vega Burt RN is Primary Nurse. as6 01:38 Assist provider with laceration repair on palmar aspect of left forearm that was 2.5 as6 cm. or less using sutures. Set up tray. Performed by Bernard Campos MD Dressed with Neosporin, nonstick bandage and an vinicio wrap. 01:41 Patient did not have IV access during this emergency room visit. as6 03:55 XRAY Forearm LEFT In Process Unspecified. EDMS Administered Medications: 01:00 Drug: Lidocaine-Epinephrine -1%: (1:100,000) 8 ml Volume: 20 ml; Route: Infiltration; as6 01:25 Drug: Ancef (cefazolin) 1 grams Route: IM; Site: left vastus lateralis; as6 01:25 Drug: [place] (HYDROcodone-acetaminophen) 10 mg-325 mg 1 tabs Route: PO; as6 01:33 Drug: Bactroban (mupirocin) Ointment 2 % 1 application Route: Topical; Site: wound; as6 01:34 Drug: KeFLEX (cephalexin) 500 mg Route: PO; as6 Medication: 01:41 VIS not applicable for this client. as6 Outcome: 01:08 Discharge ordered by MD. de oliveira 01:39 Discharged to home ambulatory, with significant other. as6 01:39 Condition: good 01:39 Discharge instructions given to patient, Instructed on discharge instructions, follow up and referral plans. medication usage, Demonstrated understanding of instructions, follow-up care, medications, Prescriptions given X 4. 01:41 Patient left the ED. as6 Signatures: Dispatcher [employer] EDSD Bernard Campos MD MD cha Dibbern, Lauren, VIET RN [email or web address] Analilia Carvajal Ashby, VIET RN as6
--- NOTE | 2022-02-15 01:09 | EDPHYS ---
Physician Documentation [facility] Name: Ritchie David Age: 42 yrs Sex: Male : 1980 Arrival Date: 02/14/2022 Time: 23:23 Bed 12 Private MD: ED Physician Bernard Campos HPI: 02/15 00:53 This 42 yrs old Male presents to ER via Ambulatory with complaints of Arm alvino Injury. 00:53 The patient or guardian complains of decreased range of motion, pain, that is acute. alvino The complaints affect the dorsal aspect of left forearm. Context: The problem was sustained on a street or driveway. Onset: The symptoms/episode began/occurred 8 hour(s) ago. Treatment prior to arrival includes: no previous treatment. Modifying factors: The symptoms are alleviated by nothing. the symptoms are aggravated by nothing. Severity of symptoms: At their worst the symptoms were moderate, in the emergency department the symptoms are unchanged. The patient has not experienced similar symptoms in the past. Historical: - Allergies: 02/14 23:39 No Known Allergies; ld1 - PMHx: 23:39 Bipolar disorder; Depression; ld1 - PSHx: 23:39 None; ld1 - Immunization history:: Adult Immunizations up to date, Client reports having NOT received the Covid vaccine. - Social history:: Smoking status: Patient reports the use of cigarette tobacco products, smokes one-half pack cigarettes per day, Patient/guardian denies using alcohol. - Family history:: not pertinent. ROS: 02/15 00:53 Constitutional: Negative for fever, chills, and weight loss, Eyes: Negative for injury, alvino pain, redness, and discharge, ENT: Negative for injury, pain, and discharge, Neck: Negative for injury, pain, and swelling, Cardiovascular: Negative for chest pain, palpitations, and edema, Respiratory: Negative for shortness of breath, cough, wheezing, and pleuritic chest pain, Abdomen/GI: Negative for abdominal pain, nausea, vomiting, diarrhea, and constipation, Back: Negative for injury and pain, : Negative for injury, bleeding, discharge, and swelling, Skin: Negative for injury, rash, and discoloration, Neuro: Negative for headache, weakness, numbness, tingling, and seizure, Psych: Negative for depression, anxiety, suicide ideation, homicidal ideation, and hallucinations, Allergy/Immunology: Negative for hives, rash, and allergies, Endocrine: Negative for neck swelling, polydipsia, polyuria, polyphagia, and marked weight changes. MS/extremity: Positive for decreased range of motion, laceration, pain, swelling, tenderness, of the palmar aspect of left forearm. Exam: 00:53 Constitutional: This is a well developed, well nourished patient who is awake, alert, alvino and in no acute distress. Head/Face: Normocephalic, atraumatic. Eyes: Pupils equal round and reactive to light, extra-ocular motions intact. Lids and lashes normal. Conjunctiva and sclera are non-icteric and not injected. Cornea within normal limits. Periorbital areas with no swelling, redness, or edema. ENT: Nares patent. No nasal discharge, no septal abnormalities noted. Tympanic membranes are normal and external auditory canals are clear. Oropharynx with no redness, swelling, or masses, exudates, or evidence of obstruction, uvula midline. Mucous membranes moist. Neck: Trachea midline, no thyromegaly or masses palpated, and no cervical lymphadenopathy. Supple, full range of motion without nuchal rigidity, or vertebral point tenderness. No Meningismus. Chest/axilla: Normal chest wall appearance and motion. Nontender with no deformity. No lesions are appreciated. Cardiovascular: Regular rate and rhythm with a normal S1 and S2. No gallops, murmurs, or rubs. Normal PMI, no JVD. No pulse deficits. Respiratory: Lungs have equal breath sounds bilaterally, clear to auscultation and percussion. No rales, rhonchi or wheezes noted. No increased work of breathing, no retractions or nasal flaring. Abdomen/GI: Soft, non-tender, with normal bowel sounds. No distension or tympany. No guarding or rebound. No evidence of tenderness throughout. Back: No spinal tenderness. No costovertebral tenderness. Full range of motion. Skin: Warm, dry with normal turgor. Normal color with no rashes, no lesions, and no evidence of cellulitis. Neuro: Awake and alert, GCS 15, oriented to person, place, time, and situation. Cranial nerves II-XII grossly intact. Motor strength 5/5 in all extremities. Sensory grossly intact. Cerebellar exam normal. Normal gait. Psych: Awake, alert, with orientation to person, place and time. Behavior, mood, and affect are within normal limits. 00:53 Musculoskeletal/extremity: Extremities: decreased ROM, laceration, pain, ROM: intact in all extremities, full active range of motion, Circulation is intact in all extremities. Sensation intact. Compartment Syndrome exam of affected extremity: is normal. Vital Signs: 02/14 23:38 BP 120 / 96; Pulse 105; Resp 18; Temp 98.0(O); Pulse Ox 98% on R/A; Weight 65.77 kg; ld1 Height 5 ft. 9 in. (175.26 cm); Pain 7/10; 23:38 Body Mass Index 21.41 (65.77 kg, 175.26 cm) ld1 Laceration: 02/15 01:04 Wound Repair of 3cm ( 1.2in ) subcutaneous laceration to palmar aspect of left forearm. alvino Irregularly shaped.. Skin/tissue flap noted.. Possible foreign body or glass noted.. Distal neuro/vascular/tendon intact. Anesthesia: Local anesthetic administered with 8 mls of 1% lidocaine w/ Epi. Wound prep: Moderate cleansing, Extensive cleansing, Wound irrigation, Particulate matter removal, Wound margin revised, Wound explored, Copious irrigation. Skin closed with 4 5-0 Prolene using interrupted sutures and sterile technique. Dressed with Neosporin, non-adherent dressing. Patient tolerated well. MDM: 02/14 23:54 Patient medically screened. [facility] 02/15 00:59 Differential diagnosis: contusion, abrasion, tendonitis. Data reviewed: vital signs, [facility] nurses notes, radiologic studies, plain films. Data interpreted: vehicle monitor technician: not applicable for this patient encounter. rate is 105 beats/min, Pulse oximetry: on room air is 98 %. Test interpretation: by ED physician or midlevel provider: plain radiologic studies. Counseling: I had a detailed discussion with the patient and/or guardian regarding: the historical points, exam findings, and any diagnostic results supporting the discharge/admit diagnosis, radiology results, the need for outpatient follow up, for definitive care, a general surgeon. 02/14 23:58 Order name: XRAY Forearm LEFT alvino 02/15 00:29 Order name: XRAY Forearm LEFT jb4 02/15 00:39 Order name: XRAY Forearm LEFT cp 02/15 01:05 Order name: XRAY Forearm LEFT aa9 02/15 00:53 Order name: Dressing - Wound; Complete Time: 01:33 alvino 02/15 00:53 Order name: Gloves, Sterile; Complete Time: 01:33 alvino 02/15 00:53 Order name: Prolene, Sutures; Complete Time: 01:33 alvino 02/15 00:53 Order name: Setup Suture Tray; Complete Time: 01:33 alvino Administered Medications: 01:00 Drug: Lidocaine-Epinephrine -1%: (1:100,000) 8 ml Volume: 20 ml; Route: Infiltration; as6 01:25 Drug: Ancef (cefazolin) 1 grams Route: IM; Site: left vastus lateralis; as 01:25 Drug: [place] (HYDROcodone-acetaminophen) 10 mg-325 mg 1 tabs Route: PO; as 01:33 Drug: Bactroban (mupirocin) Ointment 2 % 1 application Route: Topical; Site: wound; as 01:34 Drug: KeFLEX (cephalexin) 500 mg Route: PO; as6 Disposition Summary: 02/15/22 01:08 Discharge Ordered Location: Home alvino Problem: new alvino Symptoms: have improved alvino Condition: Stable alvino Diagnosis - Laceration with foreign body of left forearm, initial encounter alvino Followup: alvino - With: Private Physician - When: 2 - 3 days - Reason: Recheck today's complaints, Continuance of care, Re-evaluation by your physician Followup: alvino - With: - When: 2 - 3 days - Reason: Recheck today's complaints, Continuance of care, Re-evaluation by your physician Discharge Instructions: - Discharge Summary Sheet alvino - Laceration Care, Adult alvino - Laceration Care, Adult, [id number] alvino - Skin Foreign Body alvino Forms: - Medication Reconciliation Form alvino - Thank You Letter alvino - Antibiotic Education alvino - Prescription Opioid Use alvino Prescriptions: - Centany 2 % Topical ointment - apply 1 application by TOPICAL route 3 times per day; 30 gram; Refills: 0, alvino Product Selection Permitted - Cephalexin 500 mg Oral Capsule - take 1 capsule by ORAL route every 6 hours for 10 days; 40 capsule; Refills: 0, alvino Product Selection Permitted - Bactrim DS 800-160 mg Oral Tablet - take 1 tablet by ORAL route every 12 hours for 10 days; 20 tablet; Refills: 0, alvino Product Selection Permitted - Tylenol-Codeine #3 300 mg-30 mg Oral - take 2 tablet by ORAL route every 6 hours; 20 tablet; Refills: 0, Product [facility] Selection Permitted Signatures: Dispatcher [employer] Bernard Murcia MD MD cha Dibbern, Lauren RN RN ld1 Vega Burt RN RN as6
[2022-02-15] MEDS ORDERED: CEFAZOLIN SODIUM 1 GM/VIAL ONE (01:24)
[2022-02-15] MEDS ORDERED: MUPIROCIN 2% OINT 22GM TUBE TOP ONE (01:25)
[2022-02-15] MEDS ORDERED: CEPHALEXIN 250 MG CAP ONE (01:25)
[2022-02-15] MEDS ORDERED: HYDROCODONE/APAP 10/325 TAB ONE (01:25)
[2022-02-15] MEDS ORDERED: LIDOCAINE 1% MPF 2 ML AMPULE ONE (01:25)
[2022-02-15 03:45] VITALS: BP 120/96; TEMP 98; O2SAT 98
--- NOTE | 2022-02-16 09:04 | RAD REPORT ---
EXAM DESCRIPTION: RAD - Forearm Left - 02/15/2022 1:27 am CLINICAL HISTORY: The patient is 42 years old and is Male; POST FOREIGN BODY EXTRACTION TECHNIQUE: Two views of the left forearm. COMPARISON: February 15, 2022 12:15 AM. FINDINGS: Bones/joints: Unremarkable. No acute fracture. No dislocation. Soft tissues: Interval removal of a large radiopaque foreign object in the subcutaneous anterior forearm. A small radiopaque foreign object remains in the anterior soft tissues, not well visualized on the prior exam. Soft tissue laceration anteriorly. IMPRESSION: Interval removal of a large radiopaque foreign object in the subcutaneous anterior forea rm. A small radiopaque foreign object remains in the anterior soft tissues, not well visualized on th e prior exam. Electronically signed by: Laura Wallace MD 02/15/2022 5:21 AM CDT Due to temporary technical issues with the PACS/Fluency reporting system, reports are being signed by the in house radiologists without review as a courtesy to insure prompt reporting. The interpreting radiologist is fully responsible for the content of the report.
--- NOTE | 2022-02-16 09:24 | RAD REPORT ---
EXAM DESCRIPTION: RAD - Forearm Left - 02/15/2022 12:20 am CLINICAL HISTORY: The patient is 42 years old and is Male; PAIN TECHNIQUE: Two views of the left forearm. COMPARISON: No relevant prior studies available. FINDINGS: Bones/joints: Unremarkable. No acute fracture. No dislocation. Soft tissues: Subcutaneous radiopaque foreign object in the anterior midline forearm. IMPRESSION: Subcutaneous radiopaque foreign object in the anterior midline forearm. Electronically signed by: Laura Wallace MD 02/15/2022 5:20 AM CDT Due to temporary technical issues with the PACS/Fluency reporting system, reports are being signed by the in house radiologists without review as a courtesy to insure prompt reporting. The interpreting radiologist is fully responsible for the content of the report.
== END 2022-02-15 01:41 | disposition home or self-care (01) ==
LOC: ER 23:20
PROC: 0JQH0ZZ Repair Left Lower Arm Subcutaneous Tissue and Fascia, Open Approach (ICD-10-PCS; principal; 2022-02-15)
DX: S51.812A Laceration without foreign body of left forearm, initial encounter (principal); F17.210 Nicotine dependence, cigarettes, uncomplicated
CPT/HCPCS: 96372; 99284; J0690